=== PATIENT | female | born 1995 ===

== ENCOUNTER → 2021-04-19 | Outpatient (CLI) | payer SELFPAY ==
[2021-04-20 06:10] LABS: HBSAG SCREEN Negative (Negative); HCV ANTIBODY 0.1 (0.0-0.9)
[2021-04-20 08:10] LABS: HIV SCREEN 4TH GENERATION WRFX Non Reactive (Non Reactive)
[2021-04-21 12:11] LABS: CHLAMYDIA BY NAA Negative (Negative); GONOCOCCUS BY NAA Negative (Negative); TRICH VAG BY NAA Negative (Negative)
== END ==
LOC: LAB SHORT 12:23
PROVIDERS: Registered Nurse Community Health
DX: Z11.3 Encounter for screening for infections with a predominantly sexual mode of transmission (principal); Z20.2 Contact with and (suspected) exposure to infections with a predominantly sexual mode of transmission
CPT/HCPCS: 86592; 86803; 87340; 87389; 87491; 87591; 87661